=== PATIENT | female | born 1970 | race Caucasian/White ===

== ENCOUNTER → 2017-03-08 | Outpatient (CLI) | payer OTHER ==
[~2017-03-08] MED LIST: 8 HOUR PAIN RE650 M1 PO; ASPIRIN325 MG PO; FLEXERIL10 MG PO; MOBIC15 MG PO; PERCOCET 5-3251 EACH PO; PREMPRO 0.3 MG1 EACH PO; [UNRECOGNIZED DRUG - OTHER] PO; [UNRECOGNIZED DRUG - OTHER] PO
== END | disposition disaster alternative care site (69) ==
LOC: GBCOE 03-02 09:00
DX: Z12.31 Encounter for screening mammogram for malignant neoplasm of breast (principal); Z91.89 Other specified personal risk factors, not elsewhere classified
CPT/HCPCS: G0202